=== PATIENT | female | born 1960 | race Caucasian/White ===

== ENCOUNTER 2024-04-27 00:12 | Emergency (ER) | payer MEDICARE, OTHER ==
[~2024-04-27] VITALS: Ht 152.4 cm; Wt 59.0 kg
[~2024-04-27 00:12] MED LIST: BUPR75TA3 PO; DULO60CA45 PO; ESZO3TAB27 PO; LEVO150T8 PO
[2024-04-27] MEDS ORDERED: ASPIRIN 325 MG TABLET PO ONE (00:30)
[2024-04-27 00:38] LABS: BASOPHILS % (AUTO) 0.6 % (0.0-2.0); EOSINOPHILS % (AUTO) 1.2 % (0.0-6.0); HEMATOCRIT 31 % (33-45); HEMOGLOBIN 10.3 g/dL (11.5-14.8); LYMPHOCYTES # (AUTO) 0.6 K/uL (0.8-4.8); LYMPHOCYTES % (AUTO) 18.4 % (20.0-44.0); MEAN CORPUSCULAR HEMOGLOBIN 30 PG (26.0-33.0); MEAN CORPUSCULAR HGB CONC 33 g/dl (31.0-36.0); MEAN CORPUSCULAR VOLUME 90 fL (82-100); MONOCYTES # (AUTO) 0.4 K/uL (0.1-1.30); MONOCYTES % (AUTO) 12.8 % (2.0-12.0); PLATELET COUNT (AUTO) 118 K/uL (150-450); RED BLOOD CELL COUNT(AUTO) 3.43 MIL/uL (4.0-5.2); RED CELL DISTRIBUTION WIDTH 17.6 % (11.5-15.0)
[2024-04-27] MEDS ORDERED: GUAIFENESIN/D-METHORPHAN HB 5 ML UDC ONE (00:41)
[2024-04-27] MEDS ORDERED: KETOROLAC TROMETHAMINE INJ 30 MG/ML VIAL ONE (00:41)
[2024-04-27] MEDS: GUAIFENESIN/D-METHORPHAN HB 5 ML UDC PO ONE (00:46)
[2024-04-27] MEDS: KETOROLAC TROMETHAMINE INJ 30 MG/ML VIAL IV ONE (00:46)
[2024-04-27 00:53] LABS: ALANINE AMINOTRANSFERASE 24 U/L (12-78); ALBUMIN 2.9 g/dL (3.4-5.0); ALKALINE PHOSPHATASE 88 U/L (46-116); ASPARTATE AMINOTRANSFERASE 21 U/L (15-37); BILIRUBIN,DIRECT 0.1 mg/dL (0.0-0.2); BILIRUBIN,TOTAL 0.4 mg/dL (0.2-1.0); CALCIUM, SERUM 8.2 mg/dL (8.5-10.1); CARBON DIOXIDE 25 mmol/L (21-32); CHLORIDE 113 mmol/L (98-107); CREATININE 0.8 mg/dL (0.6-1.3); GLUCOSE 80 mg/dL (74-106); SODIUM SERUM 143 mmol/L (136-145); TOTAL PROTEIN, SERUM 6.1 g/dL (6.4-8.2); UREA NITROGEN, BLOOD 23 mg/dL (7-18)
[2024-04-27 01:23] LABS: INR 0.97 (0.91-1.10); PARTIAL THROMBOPLASTIN TIME 30.6 SEC (24.3-34.3); PROTHROMBIN TIME 10.3 SECS (9.2-11.1)
[2024-04-27 03:27] VITALS: BP 138/70; TEMP 98.5; O2SAT 97
== END 2024-04-27 04:27 | disposition home or self-care (01) ==
LOC: ER 00:15
DX: J06.9 Acute upper respiratory infection, unspecified (principal); R07.89 Other chest pain; D61.818 Other pancytopenia; E07.9 Disorder of thyroid, unspecified; Z79.890 Hormone replacement therapy; Z79.899 Other long term (current) drug therapy; Z85.038 Personal history of other malignant neoplasm of large intestine; Z20.822 Contact with and (suspected) exposure to COVID-19
CPT/HCPCS: 99285; 96374; 71045; 87426; 93005; 87804 ×2; 85025; 80048; 80076; 36415; 84484 ×2; 85730; J1885